=== PATIENT | male | born 2000 | race Hispanic/Latino ===

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

== ENCOUNTER 2018-12-02 03:21 | Emergency (ER) | payer BC ==
[2018-12-02 03:29] VITALS: BP 120/70; PULSE 52; RESP 18; TEMP 97.9; O2SAT 99
[2018-12-02] MEDS ORDERED: Fluorescein 1 mg Ophthalmic Strip OU ONE (03:39)
[2018-12-02] MEDS ORDERED: Tetracaine 0.5% Ophth 2 ML BOTTLE OU ONE (03:39)
--- NOTE | 2018-12-02 03:43 | ED PDOC ---
HPI: Eye Injury/Pain Time Seen by Provider: 12/02/18 03:30 Chief Complaint (Nursing): Eye Problem Chief Complaint (Provider): eye irritation History Per: Patient History/Exam Limitations: no limitations Onset/Duration Of Symptoms: Days (5) Current Symptoms Are (Timing): Still Present Quality: "Pain" Associated Symptoms: Discharge From Eye Additional Complaint(s): 18 y/o male presents for evaluation of right eye irritation x 5 days. Patient states he was developed left eye redness and irritation one week ago and then symptoms spread to right eye the next day so he went to Urgent Care and was prescribed Ofloxacin drops for pink eye. Patient states he has been using the drops 3 times daily in each eye and states symptoms seemed to be improving in both eyes but then states today right eye became more red with associated pain and a + foreign body sensation. Associated watery discharge. Denies fever, headache, vision changes. Patient wears contacts but has not worn them since they have been infected. Past Medical History Reviewed: Historical Data, Nursing Documentation, Vital Signs Vital Signs: Last Vital Signs Temp 97.9 F 12/02/18 03:27 Pulse 52 L 12/02/18 03:27 Resp 18 12/02/18 03:27 BP 120/70 12/02/18 03:27 Pulse Ox 99 12/02/18 03:27 - Medical History PMH: No Chronic Diseases - Surgical History Surgical History: No Surg Hx - Family History Family History: States: Unknown Family Hx - Home Medications Home Medications: Ambulatory Orders Medication Instructions Recorded Tobramycin 0.3% [Tobrex 0.3% Ophth 2 drop OP QID #1 bottle 12/02/18 [place]] - Allergies Allergies/Adverse Reactions: Allergies Allergy/AdvReac Type Severity Reaction Status Date / Time No Known Allergies Allergy Verified 12/02/18 03:29 Review of Systems ROS Statement: Except As Marked, All Systems Reviewed And Found Negative Eyes: Positive for: Pain, Redness Physical Exam - Reviewed Nursing Documentation Reviewed: Yes Vital Signs Reviewed: Yes - Physical Exam Appears: Positive for: Well, Non-toxic, No Acute Distress Head Exam: Positive for: ATRAUMATIC, NORMAL INSPECTION, NORMOCEPHALIC Skin: Positive for: Normal Color Eye Exam: Positive for: EOMI, PERRL, Conjunctival injection (bilateral, R>L). Negative for: Periorbital swelling, Periorbital tenderness ENT: Positive for: Normal ENT Inspection Neurological/Psych: Positive for: Awake, Alert, Oriented (x3) - ECG O2 Sat by Pulse Oximetry: 99 - Progress ED Course And Treament: -2 drops of tetracaine applied to bilateral eyes -2 drops flurosceine applied to bilateral eyes Right: Fluro stain reveals two small areas of uptake at 8:00 and 10:00 positions Left: Fluro stain reveals small uptake 3:00 position Patient educated on findings, discharged with rx Tobramycin Advised ophtho follow up tomorrow Return precautions given Disposition - Clinical Impression Clinical Impression: Corneal abrasion of both eyes - Patient ED Disposition Is Patient to be Admitted: No Counseled Patient/Family Regarding: Studies Performed, Diagnosis, Need For Followup, Rx Given - Disposition Referrals: Chucyk Meza MD [Staff Provider] - Disposition: Routine/Home Disposition Time: 04:20 Condition: STABLE Additional Instructions: Follow up with Quality Assurance Consultant tomorrow Use drops as directed Take Ibuprofen or Tylenol as needed for pain Prescriptions: Tobramycin 0.3% [Tobrex 0.3% Ophth Soln] 2 drop OP QID #1 bottle Instructions: Corneal Abrasion
== END 2018-12-02 04:30 | disposition home or self-care (01) ==
LOC: H.ER 03:21
DX: S05.02XA Injury of conjunctiva and corneal abrasion without foreign body, left eye, initial encounter (principal); S05.01XA Injury of conjunctiva and corneal abrasion without foreign body, right eye, initial encounter; X58.XXXA Exposure to other specified factors, initial encounter; Y92.89 Other specified places as the place of occurrence of the external cause